=== PATIENT | male | born 1995 | race Caucasian/White ===

== ENCOUNTER 2021-03-06 15:30 | Observation (INO) ==
[2021-03-06] MEDS ORDERED: Ondansetron 4 MG/2 ML VIAL IVP ONE (15:58)
[2021-03-06] MEDS ORDERED: Isovue-370 500 ML BOTTLE IVP ONE (15:58)
[2021-03-06 16:31] LABS: Basophils % 0.2 %; Eosinophils % 0.3 %; Hematocrit 45.9 % (37.5-50.1); Hemoglobin 16.3 g/dL (12.9-16.9); Immature Granulocytes % 0.2 % (0-4); Lymphocytes # 1.5 K/mcL (0.6-4.6); Lymphocytes % 12.2 %; Mean Corpuscular HGB Conc 35.5 g/dL (31.6-35.5); Mean Corpuscular Hemoglobin 29.9 pg (28.0-33.3); Mean Corpuscular Volume 84.1 fL (83.0-100.0); Mean Platelet Volume 9.9 fL (9.4-12.4); Monocytes # 1.4 K/mcL (0.0-1.3); Neutrophils # 9.5 K/mcL (1.6-8.9); Platelet Count 289 K/mcL (140-400); Red Blood Count 5.46 M/mcL (4.19-5.50); Red Cell Distribution Width 11.7 % (11.5-14.5); Segmented Neutrophils % 76.1 %; White Blood Count 12.5 K/mcL (4.3-11.1)
[2021-03-06 16:37] LABS: Bacteria,Urine Few per hpf (None-Few); Bilirubin,Urine Negative (Negative); Blood,Urine Negative (Negative); Clarity,Urine Clear (Clear); Color,Urine Yellow (Yellow); Glucose,Urine (UA) Normal (Normal); Ketones,Urine Negative (Negative); Leukocyte Esterase,Urine Negative (Negative); Mucus,Urine Few per lpf (None-Few); Nitrite,Urine Negative (Negative); Protein,Urine 30 mg/dL (Neg-Trace); Specific Gravity,Urine > 1.030 (1.010-1.025); Squamous Epithelial Cell,Urine Few per hpf (None-Few); WBC,Urine 0-3 per hpf (0-3)
[2021-03-06 16:44] LABS: BUN/Creatinine Ratio 15 (6-26); Blood Urea Nitrogen 14 mg/dL (6-20); Calcium 9.6 mg/dL (8.6-10.3); Carbon Dioxide 23 mEq/L (23-29); Chloride 102 mEq/L (98-107); Glucose 88 mg/dL (70-105); Osmolality,Calculated 284 (280-300); Potassium 3.6 mEq/L (3.5-5.1); Sodium 137 mEq/L (136-145); eGFR For African Americans > 60 (> 60); eGFR For Non-African Americans > 60 (> 60)
[2021-03-06] MEDS ORDERED: Morphine Sulfate 2 MG/ML SYRINGE IVP ONE (20:01)
[2021-03-06] MEDS ORDERED: Piperacillin/Tazobactam 3.375 GM in Water for inj. (sterile) 20 ML IVP ONE (20:01)
[2021-03-06] MEDS ORDERED: 0.9 % Sodium Chloride 1,000 ML IVC SCH ×2 (20:15→23:30)
[2021-03-06] MEDS ORDERED: Ondansetron 4 MG/2 ML VIAL IVP PRN ×2 (20:24→23:30)
[2021-03-06] MEDS ORDERED: Acetaminophen IV 1,000 MG/100 ML BAG IVPB ONE ×2 (20:35→21:29)
[2021-03-06] MEDS ORDERED: *HR* OxyCODONE Immed Rel 5 MG TABLET PO PRN (20:35)
[2021-03-06] MEDS ORDERED: Famotidine 20 MG/2 ML VIAL IVP ONE (20:35)
[2021-03-06] MEDS ORDERED: Pregabalin 75 MG CAPSULE PO ONE (20:35)
[2021-03-06] MEDS ORDERED: *HR* FentaNYL (PF) 100 MCG/2 ML VIAL ONE (20:35)
[2021-03-06] MEDS ORDERED: *HR* HYDROmorphone 2 MG TABLET PO PRN (20:35)
[2021-03-06] MEDS ORDERED: *HR* Labetalol 20 MG/4 ML SYRINGE IVP PRN (20:35)
[2021-03-06] MEDS ORDERED: *HR* HYDROmorphone (PF) 1 MG/ML SYRINGE IVP PRN (20:35)
[2021-03-06] MEDS ORDERED: *HR* Midazolam HCl 2 MG/2 ML VIAL ONE (20:36)
[2021-03-06] MEDS ORDERED: *HR* Propofol 200 MG/20 ML VIAL IVP ONE (20:36)
[2021-03-06] MEDS ORDERED: *HR* HYDROMORPHONE 2 MG/ML VIAL ONE (20:36)
[2021-03-06] MEDS ORDERED: Lidocaine -MPF 2% 2 ML VIAL ONE (20:38)
[2021-03-06] MEDS ORDERED: Ondansetron 4 MG/2 ML VIAL ONE (20:38)
[2021-03-06] MEDS ORDERED: *HR* Rocuronium Bromide 50 MG/5 ML VIAL ONE (20:38)
[2021-03-06] MEDS ORDERED: *HR* Succinylcholine 200 MG/10 ML VIAL IVP ONE (20:38)
[2021-03-06] MEDS ORDERED: Lidocaine HCL 4 ML Topical Solution (Laryng-O-Jet Kit Sterile Pak) TP ONE (20:38)
[2021-03-06 21:13] LABS: Influenza A PCR Negative (Negative); Influenza B PCR Negative (Negative); Resp. Syncytial Virus PCR Negative (Negative)
[2021-03-06 21:25] LABS: SARS-CoV-2 by PCR (In House) Negative (Negative)
[2021-03-06] MEDS ORDERED: Famotidine 20 MG/2 ML VIAL ONE (21:30)
[2021-03-06] MEDS ORDERED: Sugammadex Sodium 200 MG/2 ML VIAL IV ONE (22:14)
[2021-03-06] MEDS ORDERED: *HR* OxyCODONE/APAP 5/325 TABLET PO PRN (23:30)
[2021-03-06] MEDS: Ketorolac 15 MG/ML VIAL IVP SCH (23:54)
[2021-03-07 03:41] VITALS: TEMP 97.6
[2021-03-07 07:40] VITALS: BP 110/66; PULSE 78; O2SAT 97
[2021-03-07] MEDS ORDERED: Piperacillin/Tazobactam 3.375 GM in 0.9 % Sodium Chloride Mini Bag 100 ML IVPB SCH (08:00)
[2021-03-07] MEDS: Ketorolac 15 MG/ML VIAL IVP SCH (08:59)
== END 2021-03-07 11:29 | disposition home or self-care (01) ==
LOC: EMEROOARM 15:30 → 3ANU 15:30
PROVIDERS: ADMIT Surgery; ATTEND Surgery